=== PATIENT | female | born 1960 | race African-American/Black ===

== ENCOUNTER 2016-12-19 17:11 | Emergency (ER) | payer MEDICAID ==
[~2016-12-19] VITALS: Ht 167.6 cm; Wt 75.0 kg
[~2016-12-19 17:11] MED LIST: DIVAL250 PO; HYDR25TA PO; LISI1TAB11 PO; LOVA40TA73 PO; ONDA8TAB9 PO; VERA180T PO
[2016-12-19] MEDS ORDERED: ACETAMINOPHEN WITH CODEINE 300/30MG TABLET PO ONE (18:15)
[2016-12-19 18:43] VITALS: BP 153/100
== END 2016-12-19 19:03 | disposition home or self-care (01) ==
LOC: ER 17:11
DX: C50.912 Malignant neoplasm of unspecified site of left female breast (principal); Z79.899 Other long term (current) drug therapy; I10 Essential (primary) hypertension
CPT/HCPCS: 99283

== ENCOUNTER 2018-09-16 08:11 | Inpatient (IN) | payer MEDICAID ==
[~2018-09-16] VITALS: Ht 167.6 cm; Wt 72.6 kg
[2018-09-16] MEDS ORDERED: IBUPROFEN 600MG TABLET PO ONE (09:00)
[2018-09-16 10:20] LABS: BASOPHILS % 0.7 % (0.0-2.0); EOSINOPHILS % 3.2 % (0.0-5.0); HEMATOCRIT. 42.9 % (36.0-48.0); HEMOGLOBIN. 14.4 g/dL (12.0-16.0); MEAN CORPUSCULAR HEMOGLOBIN 33.2 pg (28.0-32.0); MONOCYTES % 7.1 % (2.0-8.0); PLATELET 169 x1000/uL (130-400); RED BLOOD CELL COUNT 4.33 mill/uL (4.2-5.4); RED CELL DISTRIBUTION WIDTH 14.3 % (11.6-14.6)
[2018-09-16 10:24] LABS: CHLORIDE 111 mEq/L (98-107)
[2018-09-16 10:27] LABS: PARTIAL THROMBOPLASTIN TIME 30.1 sec (23.4-31.0); PROTHROMBIN TIME 9.7 sec (9.1-11.1)
[2018-09-16] MEDS ORDERED: AMLODIPINE 5MG TABLET PO ONE (10:30)
[2018-09-16] MEDS ORDERED: SODIUM CHLORIDE 0.9% 1,000 ML IV ONE (11:18)
[2018-09-16] MEDS ORDERED: CLONIDINE 0.2MG TABLET PO ONE (12:45)
[2018-09-16 21:50] VITALS: BP 135/84
[2018-09-16] MEDS ORDERED: MORPHINE SULFATE 2 MG/ML CPJ (NOT FOR IM USE) IV PRN (22:30)
[2018-09-16] MEDS: MORPHINE SULFATE 10MG/5ML ORAL SOLN UDC PO PRN (22:47)
[2018-09-16] MEDS: ENOXAPARIN 40MG/0.4ML SYR SUBCUT SCH (22:48)
[2018-09-17] VITALS (7 sets, daily range): BP systolic 104–160; BP diastolic 62–96
[2018-09-17] MEDS: CLONIDINE 0.1MG TABLET PO PRN (01:31)
[2018-09-17 07:02] LABS: HEMATOCRIT. 37.4 % (36.0-48.0); HEMOGLOBIN. 12.7 g/dL (12.0-16.0); MEAN CORPUSCULAR HEMOGLOBIN 33.4 pg (28.0-32.0); MEAN CORPUSCULAR VOLUME 98.2 fL (81.0-99.0); PLATELET 161 x1000/uL (130-400); RED BLOOD CELL COUNT 3.81 mill/uL (4.2-5.4); RED CELL DISTRIBUTION WIDTH 14.3 % (11.6-14.6)
[2018-09-17 07:44] LABS: CHLORIDE 108 mEq/L (98-107)
[2018-09-17] MEDS: MORPHINE SULFATE 10MG/5ML ORAL SOLN UDC PO PRN ×3 (09:42→20:18)
[2018-09-17] MEDS ORDERED: INFLUENZA VIRUS VACCINE(AFLURIA) 0.5ML SYR IM ONE (12:00)
[2018-09-17 14:17] LABS: PLATELET ESTIMATE NORMAL
[2018-09-17] MEDS: ENOXAPARIN 40MG/0.4ML SYR SUBCUT SCH (21:00)
[2018-09-18] VITALS: BP 144/70
[2018-09-18 04:00] VITALS: BP 150/88
[2018-09-18 08:00] VITALS: BP 151/85
[2018-09-18 12:00] VITALS: BP 132/93
[2018-09-18] MEDS: MORPHINE SULFATE 10MG/5ML ORAL SOLN UDC PO PRN ×2 (15:00→21:19)
[2018-09-18 16:00] VITALS: BP 160/100
[2018-09-18 20:00] VITALS: BP 130/61
[2018-09-18] MEDS: ENOXAPARIN 40MG/0.4ML SYR SUBCUT SCH (21:13)
[2018-09-19] VITALS: BP 134/83
[2018-09-19 04:00] VITALS: BP 146/85
[2018-09-19 07:43] VITALS: BP 150/96
[2018-09-19] MEDS: MORPHINE SULFATE 10MG/5ML ORAL SOLN UDC PO PRN ×2 (11:48→21:01)
[2018-09-19 11:50] VITALS: BP 146/95
[2018-09-19 16:00] VITALS: BP 140/83
[2018-09-19 20:00] VITALS: BP 138/68
[2018-09-19] MEDS: ENOXAPARIN 40MG/0.4ML SYR SUBCUT SCH (21:01)
[2018-09-20] VITALS: BP 162/72
[2018-09-20] MEDS: MORPHINE SULFATE 10MG/5ML ORAL SOLN UDC PO PRN ×2 (03:06→10:06)
[2018-09-20 04:00] VITALS: BP 132/60
[2018-09-20 08:00] VITALS: BP 139/74
[2018-09-20 12:00] VITALS: BP 133/69
[2018-09-20 16:00] VITALS: BP 131/79
[2018-09-20] MEDS: CLONIDINE 0.1MG TABLET PO PRN (19:51)
[2018-09-20 20:00] VITALS: BP 193/91
[2018-09-20] MEDS: ENOXAPARIN 40MG/0.4ML SYR SUBCUT SCH (20:23)
[2018-09-21] VITALS: BP 124/79
[2018-09-21] MEDS: MORPHINE SULFATE 10MG/5ML ORAL SOLN UDC PO PRN ×3 (00:01→21:03)
[2018-09-21 04:00] VITALS: BP 122/61
[2018-09-21 08:00] VITALS: BP 127/85
[2018-09-21 12:05] VITALS: BP 151/84
[2018-09-21 16:00] VITALS: BP 161/78
[2018-09-21 20:00] VITALS: BP 139/91
[2018-09-21] MEDS: ENOXAPARIN 40MG/0.4ML SYR SUBCUT SCH (21:01)
[2018-09-22] VITALS: BP 135/87
[2018-09-22 04:00] VITALS: BP 141/88
[2018-09-22 07:29] VITALS: BP 141/89
[2018-09-22 08:00] VITALS: BP 141/84
== END 2018-09-22 10:15 | disposition home health service (06) | DRG 351 ==
LOC: ER 08:11 → EDBEDREQTM 16:25 → EDBEDREQ 16:25 → EDBEDREQSVC 16:25 → ENRESERV 20:17 → 8WST 21:56 → 6EST 09-21 05:49
PROVIDERS: ADMIT Internal Medicine; ATTEND Internal Medicine
DX: M17.11 Unilateral primary osteoarthritis, right knee (principal); F20.9 Schizophrenia, unspecified; E78.5 Hyperlipidemia, unspecified; I10 Essential (primary) hypertension; Z85.3 Personal history of malignant neoplasm of breast; Z90.11 Acquired absence of right breast and nipple; Z86.73 Personal history of transient ischemic attack (TIA), and cerebral infarction without residual deficits; Z86.79 Personal history of other diseases of the circulatory system; Z90.710 Acquired absence of both cervix and uterus; Z59.0 Homelessness; Z79.899 Other long term (current) drug therapy
CPT/HCPCS: 36415; 73562; 73700; 74018; 76700; 80048; 90686; 93970; 97116; 97162; 97166; 97530; 97535; 99285; J1650; J7030